=== PATIENT | female | born 1990 | race Caucasian/White ===

== ENCOUNTER 2017-09-04 08:58 | Emergency (ER) | payer OTHER ==
[~2017-09-04] VITALS: Ht 172.7 cm; Wt 122.7 kg
[2017-09-04] MEDS ORDERED: KETOROLAC TROMETHAMINE 30 MG/ML VIAL IM ONE (09:45)
[2017-09-04] MEDS ORDERED: ONDANSETRON HCL 4 MG TABLET PO ONE (09:45)
[2017-09-04] MEDS ORDERED: HYDROCODONE/ACETAMINOPHEN 5-325 MG TABLET PO ONE (09:45)
[2017-09-04] MEDS ORDERED: LIDOCAINE HCL 5% TRANSDERMAL PATCH TD ONE (09:45)
[2017-09-04 10:39] VITALS: BP 142/89
== END 2017-09-04 10:43 | disposition home or self-care (01) ==
LOC: EMS 09:00
DX: M54.5 Low back pain (principal); R03.0 Elevated blood-pressure reading, without diagnosis of hypertension
CPT/HCPCS: 96372; 99284; J1885; Q0162

== ENCOUNTER 2018-10-04 09:47 | Emergency (ER) | payer OTHER ==
[~2018-10-04] VITALS: Ht 172.7 cm; Wt 118.2 kg
[2018-10-04] MEDS ORDERED: LISI-660 PO (10:02)
[2018-10-04] MEDS ORDERED: LEVO50 PO (10:03)
[2018-10-04] MEDS ORDERED: METO25XL PO (10:03)
[2018-10-04] MEDS ORDERED: CYCLOBENZAPRINE HCL 10 MG TABLET PO ONE (11:30)
[2018-10-04] MEDS ORDERED: KETOROLAC TROMETHAMINE 30 MG/ML VIAL IM ONE (11:30)
[2018-10-04 12:40] VITALS: BP 147/87
== END 2018-10-04 12:50 | disposition home or self-care (01) ==
LOC: EMS 09:48
DX: M54.5 Low back pain (principal); I10 Essential (primary) hypertension; E03.9 Hypothyroidism, unspecified
CPT/HCPCS: 81002; 81025; 96372; 99283; J1885